=== PATIENT | female | born 1970 | race Asian ===

== ENCOUNTER → 2024-08-27 | Day surgery (SDC) | payer OTHER ==
[~2024-08-27] MED LIST: ASPIRIN81 MG PO; CRESTOR40 MG PO; LIDOCAINE HCL 2% LOCAL INJ 5 ML SDV VIAL INJ ONE; LOSARTAN POTAS100 MG PO; MELOXICAM7.5 MG PO; METFORMIN HCL500 MG PO; MIDAZOLAM HCL 2 MG/2 ML VIAL ONE; PROPOFOL IV EMULSION 10 MG/ML 20 ML VIAL ONE
[2024-08-27] MEDS: LACTATED RINGER'S 1,000 ML ONE (07:02)
[2024-08-27 08:54] VITALS: TEMP 98.4
[2024-08-27 09:20] VITALS: BP 126/80; PULSE 86; RESP 18; O2SAT 99
== END | disposition home or self-care (01) ==
LOC: OR 06:02
PROVIDERS: ATTEND Internal Medicine Gastroenterology
DX: Z12.11 Encounter for screening for malignant neoplasm of colon (principal); K57.30 Diverticulosis of large intestine without perforation or abscess without bleeding; K64.8 Other hemorrhoids; E11.9 Type 2 diabetes mellitus without complications; I10 Essential (primary) hypertension; E78.5 Hyperlipidemia, unspecified; Z01.810 Encounter for preprocedural cardiovascular examination; Z79.84 Long term (current) use of oral hypoglycemic drugs; Z79.1 Long term (current) use of non-steroidal anti-inflammatories (NSAID); Z79.82 Long term (current) use of aspirin; Z79.899 Other long term (current) drug therapy; Z86.19 Personal history of other infectious and parasitic diseases
CPT/HCPCS: 45378; 93005; J2003; J2250; J2704; J7121